=== PATIENT | male | born 1955 | race Hispanic/Latino ===

== ENCOUNTER 2019-01-26 15:56 | Emergency (ER) | payer MEDICARE, BC, MEDICAID ==
[2019-01-26 17:45] LABS: Bilirubin Negative (Negative); Blood, Urine Large (Negative); Clarity Cloudy (Clear); Glucose, Urine (Dipstick) Negative (Negative); Leukocyte Large (Negative); Nitrite Negative (Negative); Protein, Urine (Dipstick) 100 mg/dL (Neg-Trace); Urobilinogen 0.2 mg/dL (Less than 2)
[2019-01-26 17:50] LABS: RBC/HPF Greater than 50 HPF (0-3); Squamous Epithelial 0-3 HPF (0-3); WBC/HPF Greater Than 50 HPF (0-3)
[2019-01-26 17:51] LABS: Bacteria/HPF 2+ HPF (None Seen)
== END 2019-01-26 19:40 ==
LOC: MADERS 15:56
DX: T83.098A Other mechanical complication of other urinary catheter, initial encounter (principal); N39.0 Urinary tract infection, site not specified; N32.89 Other specified disorders of bladder; I10 Essential (primary) hypertension; E11.9 Type 2 diabetes mellitus without complications; E78.5 Hyperlipidemia, unspecified; E78.00 Pure hypercholesterolemia, unspecified; Z87.891 Personal history of nicotine dependence; Z79.899 Other long term (current) drug therapy; Z79.4 Long term (current) use of insulin
CPT/HCPCS: 51102; 81003; 81015; 87086

== ENCOUNTER 2019-03-18 15:01 | Outpatient (CLI) | payer MEDICARE, BC, MEDICAID | END 2019-03-18 15:02 | disposition home or self-care (01) | LOC: MADLABBHPM 15:01 | PROVIDERS: ATTEND Family Medicine | DX: R50.81 Fever presenting with conditions classified elsewhere (principal) | CPT/HCPCS: 87804 ==

== ENCOUNTER 2019-05-24 09:57 | Emergency (ER) | payer MEDICARE, BC, MEDICAID ==
[2019-05-24 10:55] LABS: Bilirubin Negative (Negative); Blood, Urine Small (Negative); Glucose, Urine (Dipstick) 100 mg/dL (Negative); Leukocyte Moderate (Negative); Nitrite Positive (Negative); Protein, Urine (Dipstick) 100 mg/dL (Neg-Trace); Urobilinogen 0.2 mg/dL (Less than 2)
[2019-05-24 11:02] LABS: Clarity Cloudy (Clear)
[2019-05-24 11:04] LABS: RBC/HPF 0-3 HPF (0-3); Squamous Epithelial 0-3 HPF (0-3); WBC/HPF Greater Than 50 HPF (0-3)
[2019-05-24 11:05] LABS: Bacteria/HPF 3+ HPF (None Seen); Mucous/LPF 1+ LPF (<2+)
[2019-05-24 11:06] LABS: Yeast-Budding Rare HPF (None Seen)
[2019-05-24 11:44] LABS: #Basophils 0.1 thou/uL (0.0-0.2); #Eosinphils 0.1 thou/uL (0.0-0.7); #Lymphocytes 1.4 thou/uL (1.20-3.40); #Monocytes 0.5 thou/uL (0.11-0.59); %Basophils 0.6 % (0.0-1.0); %Eosinophils 0.5 % (0.0-10.0); %Lymphocytes 14.2 % (21.0-51.0); %Monocytes 4.8 % (0.0-10.0); %Neutrophils 79.9 % (42.0-75.0); Hemoglobin 16.4 g/dL (14.0-18.0); Mean Corpuscular HGB CONC 31.3 g/dL (32.0-36.0); Mean Corpuscular Hemoglobin 27.3 pg (27.0-31.0); Mean Corpuscular Volume 87.4 fL (78.0-98.0); Mean Platelet Volume 7.8 fL (7.4-10.4); Platelet Count 326 thou/uL (130-400); RBC Distribution Width 12.2 % (11.5-14.5)
[2019-05-24 11:56] LABS: Base Excess-Venous 2.6 mmol/L (-2.0 to 3.0); Bicarbonate (HCO3v) 31.2 mmol/L (22.0-28.0); Calcium, Ionized 1.23 mmol/L (See Comments:); Chloride 106 mmol/L (98-107); Hemoglobin - Calc 18.5 g/dL (14.0-18.0); Potassium 4.2 mmol/L (3.5-5.1); Sodium 144 mmol/L (138-145); T. Carbon Dioxide 33.1 mmol/L (22.0-28.0); vO2 Saturation-calc 85.9 % (60.0-85.0)
[2019-05-24 11:59] LABS: ALT (SGPT) 33 U/L (8-55); AST (SGOT) 15 U/L (5-34); Albumin 4.2 g/dL (3.4-4.8); Alkaline Phosphatase 106 U/L (40-110); Anion Gap 15 mmol/L (10-20); BUN (Urea Nitrogen) 15 mg/dL (8.4-25.7); Bilirubin, Total 0.3 mg/dL (0.2-1.2); Calc. Creatinine Clearance 0 mL/min (70-130); Calcium 9.7 mg/dL (7.8-10.44); Carbon Dioxide 28 mmol/L (23-31); Chloride 104 mmol/L (98-107); Estimated GFR-MDRD 62; Globulin 3.3 g/dL (2.4-3.5); Glucose 172 mg/dL (80-115); Lipase 5 U/L (8-78); Potassium 4.3 mmol/L (3.5-5.1); Protein, Total 7.5 g/dL (5.8-8.1); Sodium 143 mmol/L (136-145)
--- NOTE | 2019-05-24 12:05 | CT ---
CT Abdomen Pelvis WO Con: 05/24/2019 11:06 AM HISTORY: Lower abdominal tenderness COMPARISON: 04/14/2019 TECHNIQUE: Multiple contiguous axial images were obtained and a CT of the abdomen and pelvis without IV contrast . Coronal and sagittal reformats were performed. FINDINGS: This examination is limited for the evaluation of solid organs and vascular structures due to the lac k of intravenous contrast. Lower Chest: within normal limits. Abdomen: Liver: within normal limits. Bile Ducts: Normal caliber. Gallbladder: Removed Pancreas: within normal limits. Spleen: within normal limits. Adrenals: within normal limits. Kidneys: within normal limits. Pelvis: Reproductive Organs: No pelvic masses. Ureters: within normal limits. Bladder: Decompressed by suprapubic catheter Bowel: Normal caliber. Normal appendix. Mesenteric Lymph Nodes: No enlarged mesenteric lymph nodes. Peritoneum: No ascites or free air, no fluid collection. Slight haziness of the small bowel mesentery may be normal for this patient. Vessels: Atherosclerotic calcifications in the aorta Retroperitoneum: within normal limits. Abdominal Wall: within normal limits. Bones: Degenerative changes in the spine. IMPRESSION: No evidence of acute intraabdominal or pelvic abnormality.
[2019-05-24] MEDS ORDERED: cefTRIAXone\\ROCEPHIN 2 GM VIAL ONE (12:26)
[2019-05-24] MEDS ORDERED: Sodium Chloride 0.9% 100 ML ONE (12:26)
[2019-05-24] MEDS ORDERED: Sodium Chloride 0.9% 1,000 ML ONE ×2 (12:26→13:47)
--- NOTE | 2019-05-24 12:46 | CT ---
EXAM: CT brain without contrast HISTORY: Dizziness COMPARISON: 01/11/2019 TECHNIQUE: Multiple contiguous axial images were obtained and a CT of the brain without contrast. FINDINGS: The brain is normal in morphology and attenuation without focal lesions or confluent areas of infarction. There is no evidence of hydrocephalus, intracranial hemorrhage, or extra-axial fluid collection. The calvarium and overlying soft tissues are unremarkable. The visualized paranasal sinuses and masto id air cells are well aerated. IMPRESSION: No evidence of acute intracranial abnormality
[2019-05-24] MEDS ORDERED: Aspirin Chewable 81 MG TAB ONE (13:22)
[2019-05-24] MEDS ORDERED: Promethazine HCl 25 MG/ML VIAL ONE (13:22)
== END 2019-05-24 14:16 | disposition short-term general hospital (02) ==
LOC: MADERS 09:57
DX: N30.90 Cystitis, unspecified without hematuria (principal); G35 Multiple sclerosis; E11.9 Type 2 diabetes mellitus without complications; R19.7 Diarrhea, unspecified; R10.814 Left lower quadrant abdominal tenderness; R10.813 Right lower quadrant abdominal tenderness; E78.5 Hyperlipidemia, unspecified; E78.00 Pure hypercholesterolemia, unspecified; I10 Essential (primary) hypertension; Z87.891 Personal history of nicotine dependence; Z79.899 Other long term (current) drug therapy; Z79.4 Long term (current) use of insulin; Z96.0 Presence of urogenital implants
CPT/HCPCS: 36415; 70450; 74176; 80053; 81003; 81015; 82330; 82803; 83605; 83690; 84484; 85025; 87077; 87086; 87186; 96365; 96367; J0696; J2550; J3490; J7050

== ENCOUNTER 2019-06-27 09:32 | Inpatient (IN) | payer MEDICARE, BC, OTHER ==
[2019-06-27] MEDS ORDERED: Sodium Chloride 0.9% 1,000 ML ONE (09:52)
[2019-06-27] MEDS ORDERED: Ketorolac Tromethamine 30 MG/ML VIAL ONE (10:26)
[2019-06-27] MEDS ORDERED: Phenazopyridine HCl 97.5 MG TABLET ONE (10:27)
[2019-06-27 10:37] LABS: #Basophils 0.1 thou/uL (0.0-0.2); #Eosinphils 0.1 thou/uL (0.0-0.7); #Monocytes 0.4 thou/uL (0.11-0.59); #Neutrophils 6.4 thou/uL (1.40-6.50); %Basophils 0.7 % (0.0-1.0); %Eosinophils 0.8 % (0.0-10.0); %Lymphocytes 12.3 % (21.0-51.0); %Monocytes 4.5 % (0.0-10.0); %Neutrophils 81.6 % (42.0-75.0); Hemoglobin 14.5 g/dL (14.0-18.0); Mean Corpuscular HGB CONC 31.8 g/dL (32.0-36.0); Mean Corpuscular Volume 88.2 fL (78.0-98.0); Mean Platelet Volume 7.4 fL (7.4-10.4); Platelet Count 243 thou/uL (130-400); RBC Distribution Width 12.1 % (11.5-14.5); Red Blood Cell (RBC) Count 5.18 mill/uL (4.70-6.10); White Blood Cell (WBC) Count 7.8 thou/uL (4.8-10.8)
[2019-06-27 10:40] LABS: Bilirubin Negative (Negative); Blood, Urine Large (Negative); Clarity Cloudy (Clear); Glucose, Urine (Dipstick) Negative (Negative); Leukocyte Moderate (Negative); Nitrite Negative (Negative); Protein, Urine (Dipstick) 100 mg/dL (Neg-Trace); Urobilinogen 0.2 mg/dL (Less than 2)
[2019-06-27 10:45] LABS: Bacteria/HPF 3+ HPF (None Seen); RBC/HPF Greater than 50 HPF (0-3); WBC/HPF Greater than 50 HPF (0-3)
[2019-06-27 10:52] LABS: ALT (SGPT) 22 U/L (8-55); AST (SGOT) 9 U/L (5-34); Alkaline Phosphatase 90 U/L (40-110); Anion Gap 13 mmol/L (10-20); BUN (Urea Nitrogen) 16 mg/dL (8.4-25.7); Bilirubin, Total 0.4 mg/dL (0.2-1.2); Calc. Creatinine Clearance 0 mL/min (70-130); Calcium 9.3 mg/dL (7.8-10.44); Carbon Dioxide 26 mmol/L (23-31); Chloride 106 mmol/L (98-107); Estimated GFR-MDRD 69; Globulin 2.9 g/dL (2.4-3.5); Glucose 187 mg/dL (80-115); Potassium 4.2 mmol/L (3.5-5.1); Protein, Total 6.9 g/dL (5.8-8.1); Sodium 141 mmol/L (136-145)
[2019-06-27] MEDS ORDERED: Morphine 4 MG/ML VIAL ONE ×2 (11:19→14:27)
--- NOTE | 2019-06-27 12:07 | CT ---
CT ABDOMEN AND PELVIS PERFORMED WITH CONTRAST ENHANCEMENT: HISTORY: Abdominal pain. COMPARISON: A 04/24/2019 study. FINDINGS: The lung bases are clear of infiltrates. The liver, spleen, and pancreas regions appear unremarkable. Gallbladder has been removed. Pneumobi casper is again demonstrated. Right and left adrenal glands and right and left kidneys are normal in size. There is some stranding to the more proximal mesenteric fat, a stable finding. CT OF PELVIS PERFORMED WITH CONTRAST: Suprapubic catheter is in place. The bladder is decompressed. There is bladder wall thickening. Ap pendix is normal. IMPRESSION: 1. Post cholecystectomy change with stable appearance to pneumobilia. 2. Suprapubic catheter in place. 3. Fat stranding within the mesenteric fat which is a stable finding and appears chronic. 4. No acute findings of the abdomen or pelvis. POS: TPC
[2019-06-27] MEDS ORDERED: Ciprofloxacin Lactate/D5W 400 mg/200 ml Premix ONE (12:37)
[2019-06-27] MEDS ORDERED: Ondansetron PF 4 MG/2 ML Vial SLOW IVP PRN (15:39)
[2019-06-27] MEDS ORDERED: Ondansetron ODT 4 MG TAB PO PRN (15:39)
[2019-06-27 15:56] VITALS: BMI 32.1
[2019-06-27] MEDS: Sodium Chloride 0.9% 1,000 ML IV SCH (16:47)
[2019-06-27] MEDS: Ibuprofen 600 MG TAB PO PRN (19:26)
[2019-06-27] MEDS ORDERED: Baclofen 10 MG TAB PO SCH (21:00)
[2019-06-27] MEDS ORDERED: Famotidine/PF 20 mg/2ml Vial SLOW IVP SCH (21:00)
[2019-06-27] MEDS ORDERED: metFORMIN 500 MG TAB PO SCH (22:30)
[2019-06-27] MEDS ORDERED: Famotidine In NaCl 20 mg/50 ml Premix Bag ONE (23:28)
[2019-06-28] MEDS: Sodium Chloride 0.9% 1,000 ML IV SCH ×2 (00:47→19:18)
[2019-06-28] MEDS: Morphine 4 MG/ML VIAL SLOW IVP PRN ×3 (06:04→17:16)
[2019-06-28] MEDS: Ibuprofen 600 MG TAB PO PRN ×2 (08:00→17:16)
[2019-06-28] MEDS ORDERED: Guaifenesin DM 100-10/5 ML UDCUP PO PRN (08:30)
[2019-06-28] MEDS ORDERED: Meclizine HCl 25 MG TAB PO PRN (08:30)
[2019-06-28] MEDS ORDERED: Baclofen 10 MG TAB PO SCH (09:00)
[2019-06-28] MEDS ORDERED: Enoxaparin Sodium 40 MG/0.4 ML SYRINGE SC SCH (09:00)
[2019-06-28] MEDS ORDERED: oxyCODONE ER 10 MG TAB PO SCH ×2 (09:00)
[2019-06-28] MEDS ORDERED: Famotidine In NaCl,Iso-Osm/PF 20 MG in Premix Bag 1 BAG IVPB SCH (09:00)
[2019-06-28] MEDS: Baclofen 10 MG TAB PO SCH ×3 (09:33→21:04)
[2019-06-28] MEDS: Amlodipine 5 MG TAB PO SCH (09:33)
[2019-06-28] MEDS: Magnesium Oxide 400 MG TAB PO SCH (09:34)
[2019-06-28] MEDS: Losartan 25 MG TAB PO SCH (09:35)
[2019-06-28] MEDS: Tamsulosin HCl 0.4 MG CAP PO SCH (09:35)
[2019-06-28] MEDS: Famotidine 20 MG TAB PO SCH (09:35)
[2019-06-28] MEDS: Polyethylene Glycol 3350 17 GM Packet PO SCH ×2 (09:36→21:04)
[2019-06-28] MEDS: Lantus 1000 UNITS/10 ML VIAL SC SCH (09:36)
[2019-06-28] MEDS ORDERED: Iopamidol 370 76% 100 ML VIAL ONE (12:49)
[2019-06-28] MEDS ORDERED: Trospium 20 MG TAB PO SCH (15:00)
[2019-06-28] MEDS: Trospium 20 MG TAB PO SCH ×2 (15:20→21:05)
[2019-06-28] MEDS: metFORMIN 500 MG TAB PO SCH (21:04)
--- NOTE | 2019-06-29 05:53 | HP ---
PRIMARY CARE PHYSICIAN: Dr. Siegel at [facility]. CHIEF COMPLAINT: Bladder spasms. HISTORY OF PRESENT ILLNESS: Mr. Horn is a 64-year-old male with a medical history of multiple recurrent urinary tract infections, diabetes type 2 , and multiple sclerosis. The patient presented to the ER from [facility] due to recurrent bladder spasms with excruciating pain radiating to his penis with a small amount of discharge from his penis into his diaper that he wears. The patient also does have a history of penile cancer. He states he saw his urologist, Dr. Massey, a day before on the and his suprapubic catheter was changed. He denies any fevers. He complains of left lower abdominal tenderness that is worsening the episodes for him. He states he had not had a bowel movement since 6 days, but then yesterday he had 2 very large loose bowel movements, but that is normal for him. He denies any trauma to the penile area. He denies any blood in his urine. He states the suprapubic catheter has been draining well and he had emptied it multiple times prior to presentation to the emergency room. The patient states he was in the hospital last month due to his flare-up of his multiple sclerosis. 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 Due to current COVID-19 restrictions in the assisted living facility, staff could not go forklift picker his medication and the patient could not return at the current moment. The patient was admitted. Upon evaluation, he continues to complain of severe spasms to his suprapubic bladder area radiating to his penis. He denies any fever. Denies any nausea or vomiting. PAST MEDICAL HISTORY: 1. Diabetes, type 2. 2. Multiple sclerosis. 3. Hypertension. 4. Recurrent multiple urinary tract infections. 5. BPH. 6. Penile cancer. PAST SURGICAL HISTORY: Suprapubic catheter, cholecystectomy. SOCIAL HISTORY: The patient lives in assisted living facility. He denies alcohol or illicit drug use. FAMILY HISTORY: Noncontributory. ALLERGIES: CODEINE, ADHESIVE, VANCOMYCIN, AND ACETAMINOPHEN. MEDICATIONS: 1. Baclofen 20 t.i.d. 2. Amlodipine 10 at bedtime. 3. Motrin 600 q.6 p.r.n. 4. Lantus 15 subcu daily. 5. Losartan 100 daily. 6. Mag-Ox 500 daily. 7. Meclizine 25 q.8 p.r.n. 8. Metformin 500 daily. 9. MiraLAX 17 g p.o. b.i.d. 10. Flomax 0.4 daily. 11. Oxybutynin XR 15 daily. REVIEW OF SYSTEMS: GENERAL: The patient denies fatigue, fever, chills. EYES: Denies eye pain, vision changes. ENT: Denies nasal congestion or rhinorrhea. RESPIRATORY: Denies cough, shortness of breath, or congestion. CARDIOVASCULAR: Denies chest pain, palpitation, edema. GASTROINTESTINAL: Reports constipation and then diarrhea. Reports abdominal pain. Denies nausea or vomiting. GENITOURINARY: Suprapubic tenderness and spasms. SKIN: Penile cancer. MUSCULOSKELETAL: Pain and tenderness to extremities. NEUROLOGIC: Weakness to both upper and lower extremities, worse in the right, can stand at baseline. Majority of the time, using the wheelchair. PSYCHOLOGIC: Denies anxiety or depression. PHYSICAL EXAMINATION: VITAL SIGNS: Temperature 96.5, pulse 95, blood pressure 124/66, respirations 18 , and O2 saturation 94% on room air. GENERAL: The patient is alert, awake, and oriented x3. He is lying in bed, in mild discomfort due to abdominal pain and spasms. HEENT: Normocephalic, atraumatic. PERRLA, EOMs intact. Gross normal vision. Gross normal hearing. NECK: Supple. Trachea midline. No JVD. CARDIOVASCULAR: Normal rate and rhythm. S1 and S2. No murmurs, gallops, or rubs. LUNGS: Clear to auscultation bilaterally. No wheezing, rales, or rhonchi. ABDOMEN: Soft. Positive bowel sounds. Tenderness to the left upper and lower abdomen. No guarding. Mild rebound. MUSCULOSKELETAL: Decreased tone to upper and lower extremities. Strength in the right upper extremity 3/5, left upper extremity 3/5, right and left lower extremities 2/5. NEUROLOGIC: Cranial nerves 2 through 12 grossly intact. SKIN: Capillary refill less than 3 seconds. PSYCHOLOGIC: Normal mood and affect. Good judgment and insight. LABORATORY AND DIAGNOSTIC DATA: UA; cloudy, large blood, 100 protein, moderate leukocytes, greater than 50 rbc's and wbc's, 3+ bacteria. Sodium 141, potassium 4.2, chloride 106, BUN 16, creatinine 1.08, glucose 187. Lactic acid 1.3. Calcium 9.3. WBC 7.8, hemoglobin 14.5, hematocrit 45.7, and platelets 243. ASSESSMENT: 1. Bladder spasm with neurogenic bladder. 2. Urinary tract infection, recurrent. 3. Multiple sclerosis. 4. Diabetes, type 2. 5. Hypertension. PLAN: The patient is a 64-year-old male with history of penile cancer , neurogenic bladder with suprapubic catheter, who has been admitted for bladder spasms and urinary tract infection. We will place the patient on Levaquin 750 daily, pending urine culture. We will place the patient on ibuprofen 600 q.4-6 p.r.n. We will continue morphine q.4 severe pain. We will continue oxybutynin for now and consider change if no improvement. We will continue the patient's home medications. We will plan for the patient to follow up with the urologist again as an outpatient. We will place the patient on Accu-Chek before meals and at bedtime. We will monitor electrolytes closely and assist the patient with his pain closely. Code status, the patient is a DNAR. Job ID: [id number] MTDD
[2019-06-29] MEDS ORDERED: metFORMIN 500 MG TAB PO SCH (08:00)
[2019-06-29] MEDS ORDERED: Tolterodine Tartrate LA 2 MG CAP PO SCH (09:00)
[2019-06-29] MEDS ORDERED: Oxybutynin ER 5 MG TAB PO SCH (09:00)
[2019-06-29] MEDS: Losartan 25 MG TAB PO SCH (09:19)
[2019-06-29] MEDS: Polyethylene Glycol 3350 17 GM Packet PO SCH (09:19)
[2019-06-29] MEDS: Famotidine 20 MG TAB PO SCH (09:20)
[2019-06-29] MEDS: Baclofen 10 MG TAB PO SCH ×3 (09:20→20:54)
[2019-06-29] MEDS: Magnesium Oxide 400 MG TAB PO SCH (09:20)
[2019-06-29] MEDS: Trospium 20 MG TAB PO SCH ×2 (09:20→20:53)
[2019-06-29] MEDS: Amlodipine 5 MG TAB PO SCH (09:21)
[2019-06-29] MEDS: Tamsulosin HCl 0.4 MG CAP PO SCH (09:21)
[2019-06-29] MEDS: Lantus 1000 UNITS/10 ML VIAL SC SCH (09:28)
[2019-06-29] MEDS ORDERED: Sodium Chloride 0.9% 1,000 ML BAG ONE (14:05)
[2019-06-29] MEDS: metFORMIN 500 MG TAB PO SCH (20:54)
[2019-06-30] MEDS ORDERED: Sodium Chloride 0.9% 30 ML ONE (08:36)
[2019-06-30] MEDS: Magnesium Oxide 400 MG TAB PO SCH (08:40)
[2019-06-30] MEDS: Famotidine 20 MG TAB PO SCH (08:40)
[2019-06-30] MEDS: Trospium 20 MG TAB PO SCH ×2 (08:41→20:21)
[2019-06-30] MEDS: Amlodipine 5 MG TAB PO SCH (08:41)
[2019-06-30] MEDS: Tamsulosin HCl 0.4 MG CAP PO SCH (08:42)
[2019-06-30] MEDS: Baclofen 10 MG TAB PO SCH ×3 (08:42→20:22)
[2019-06-30] MEDS: Losartan 25 MG TAB PO SCH (08:42)
[2019-06-30] MEDS: Lantus 1000 UNITS/10 ML VIAL SC SCH (08:44)
--- NOTE | 2019-06-30 09:29 | RAD ---
SINGLE VIEW ABDOMEN: HISTORY: Left-sided abdominal pain and tenderness. COMPARISON: 04/03/2018. FINDINGS: Nonspecific bowel gas pattern. No suspicious densities in the abdomen or pelvis. No pneumoperitoneum on this supine projection. No suspicious densities. Air-filled colon projects over the midline of the lower abdomen. IMPRESSION: Nonspecific bowel gas pattern. Consider CT if there is concern for possible acute abdominal pathology . Correlation made with CT from 06/27/2019 does not report any acute findings. Transcribed Date/Time: 06/30/2019 9:39 AM
[2019-06-30] MEDS: Polyethylene Glycol 3350 17 GM Packet PO SCH (10:19)
[2019-06-30] MEDS: Bisacodyl 5 MG TAB PO PRN (10:23)
[2019-06-30] MEDS: Nitrofurantoin Monohyd/M-Cryst 100 MG CAP PO SCH (20:21)
[2019-06-30] MEDS: metFORMIN 500 MG TAB PO SCH (20:22)
[2019-07-01] MEDS: Bisacodyl 5 MG TAB PO PRN (08:58)
[2019-07-01] MEDS: Nitrofurantoin Monohyd/M-Cryst 100 MG CAP PO SCH (08:58)
[2019-07-01] MEDS: Magnesium Oxide 400 MG TAB PO SCH (08:58)
[2019-07-01] MEDS: Trospium 20 MG TAB PO SCH (08:58)
[2019-07-01] MEDS: Amlodipine 5 MG TAB PO SCH (08:59)
[2019-07-01] MEDS: Famotidine 20 MG TAB PO SCH (08:59)
[2019-07-01] MEDS: Baclofen 10 MG TAB PO SCH ×2 (09:00→14:47)
[2019-07-01] MEDS: Tamsulosin HCl 0.4 MG CAP PO SCH (09:01)
[2019-07-01] MEDS: Losartan 25 MG TAB PO SCH (09:05)
[2019-07-01] MEDS: Polyethylene Glycol 3350 17 GM Packet PO SCH (09:06)
[2019-07-01] MEDS: Lantus 1000 UNITS/10 ML VIAL SC SCH (09:07)
[2019-07-01 11:11] VITALS: BP 115/85; TEMP 98.2
[2019-07-01] MEDS ORDERED: Fleet Enema 133 ML BOT PR SCH (14:15)
[2019-07-01] MEDS ORDERED: Cipro 250 MG TAB PO SCH (20:00)
[2019-07-02] MEDS ORDERED: Fleet Enema 133 ML BOT FS PRN (09:00)
--- NOTE | 2019-07-03 22:28 | PQF ---
Justina Boubacar Stevens ALYX QUEZADA [id number] CLINICAL DOCUMENTATION CLARIFICATION FORM: POST DISCHARGE Addendum to original discharge summary date: ____ Late entry note date: __ DATE:07/03/2019 ATTN: ALYX QUEZADA Please exercise your independent, professional judgment in responding to the clarification form. Clinical indicators are provided on the bottom of this form for your review Please check appropriate box(s): [x ] UTI due to suprapubic catheter [ ] UTI not due to suprapubic catheter [ ] Other diagnosis [ ] Unable to determine In addition, please specify: Present on Admission (POA): [ x ] Yes [ ] No [ ] Unable to determine For continuity of documentation, please document condition throughout progress notes and discharge summary. Thank You. CLINICAL INDICATORS - SIGNS / SYMPTOMS / LABS He states he saw his urologist Dr Massey a day before on the and his suprapubic catheter was changed -Documented in H&P on 06/27 by Alyx Quezada MD The patient is a 64 year-old male with history of penile cancer , neurogenic bladder with suprapubic catheter.Who has been admitted for bladder spasms and urinary tract infection-Documented in H&P on 06/27 by Alyx Quezada MD RISK FACTORS The patient is a 64 year-old male with history of penile cancer , neurogenic bladder with suprapubic catheter.Who has been admitted for bladder spasms and urinary tract infection-Documented in H&P on 06/27 by Alyx Quezada MD TREATMENT: We will place the patient on Levaquin 750 daily -Documented in H&P on 06/27 by Alyx Quezada MD Levaquin 750 mg IV-Documented in medication snapshot [employer] Winform Viewer (This form is maintained as a part of the permanent medical record) 2014 [employer] All Rights Reserved [email or web address] [phone] MTDD
== END 2019-07-01 14:47 | disposition swing bed (61) | DRG 699 ==
LOC: MADERS 09:32 → MADMS 13:55 → OBSVTOIN 06-28 11:26
PROVIDERS: ADMIT Family Medicine; ATTEND Family Medicine
DX: N32.89 Other specified disorders of bladder (principal); T83.518A Infection and inflammatory reaction due to other urinary catheter, initial encounter; I10 Essential (primary) hypertension; E11.9 Type 2 diabetes mellitus without complications; G35 Multiple sclerosis; N31.2 Flaccid neuropathic bladder, not elsewhere classified; N40.0 Benign prostatic hyperplasia without lower urinary tract symptoms; Y84.6 Urinary catheterization as the cause of abnormal reaction of the patient, or of later complication, without mention of misadventure at the time of the procedure
CPT/HCPCS: 36415; 36416; 74018; 74177; 80053; 81003; 81015; 83605; 85025; 87040; 87077; 87086; 87186; 96361; 96365; 96375; 96376; J0744; J1885; J1956; J2270; J2405; J7050; Q9967

== ENCOUNTER 2019-07-29 07:07 | Emergency (ER) | payer MEDICARE, BC, OTHER ==
[2019-07-29] MEDS ORDERED: Mineral Oil ENEMA ONE ×2 (07:51→07:55)
[2019-07-29 08:21] LABS: #Basophils 0.1 thou/uL (0.0-0.2); #Eosinphils 0.1 thou/uL (0.0-0.7); #Lymphocytes 0.7 thou/uL (1.20-3.40); #Monocytes 0.3 thou/uL (0.11-0.59); %Basophils 0.5 % (0.0-1.0); %Eosinophils 0.6 % (0.0-10.0); %Lymphocytes 7.2 % (21.0-51.0); %Monocytes 2.9 % (0.0-10.0); %Neutrophils 88.7 % (42.0-75.0); Hemoglobin 14.4 g/dL (14.0-18.0); Mean Corpuscular HGB CONC 31.8 g/dL (32.0-36.0); Mean Corpuscular Hemoglobin 28.1 pg (27.0-31.0); Mean Corpuscular Volume 88.2 fL (78.0-98.0); Platelet Count 264 thou/uL (130-400); Red Blood Cell (RBC) Count 5.11 mill/uL (4.70-6.10); White Blood Cell (WBC) Count 10.1 thou/uL (4.8-10.8)
[2019-07-29 08:38] LABS: ALT (SGPT) 16 U/L (8-55); AST (SGOT) 9 U/L (5-34); Alkaline Phosphatase 83 U/L (40-110); Anion Gap 12 mmol/L (10-20); BUN (Urea Nitrogen) 14 mg/dL (8.4-25.7); Bilirubin, Total 0.4 mg/dL (0.2-1.2); Calc. Creatinine Clearance 0 mL/min (70-130); Calcium 9.4 mg/dL (7.8-10.44); Carbon Dioxide 30 mmol/L (23-31); Chloride 107 mmol/L (98-107); Estimated GFR-MDRD 78; Globulin 3.1 g/dL (2.4-3.5); Glucose 135 mg/dL (80-115); Potassium 3.9 mmol/L (3.5-5.1); Protein, Total 7.1 g/dL (5.8-8.1); Sodium 145 mmol/L (136-145)
[2019-07-29 09:02] LABS: Lipase Less than 4 U/L (8-78)
--- NOTE | 2019-07-29 09:45 | CT ---
CT ABDOMEN AND PELVIS WITHOUT CONTRAST: Date: 07/29/2019 PROVIDED CLINICAL HISTORY: Abdominal pain. FINDINGS: Comparison is made with the study dated 06/27/2019 and 05/24/2019. The visualized lung bases are free of significant opacity. The solid abdominal organs and suboptimally evaluated in the absence of IV contrast material, but dem onstrate an unremarkable unenhanced CT appearance. There is persistent, nonspecific increased attenuation within the central small bowel mesenteric fat, which can be seen in the setting of mesenteric panniculitis. There is no bowel dilatation, additiona l fat stranding, free fluid, or free air apparent. There is conspicuous rectal fecal retention. There is minimal noncircumscribed fluid density within the presacral fat. The appendix appears normal. Cho lecystectomy changes are seen. Small, fat-containing right inguinal hernia. Suprapubic catheter is again noted. Scattered vascular c alcifications are seen. The osseous structures demonstrate no concerning lytic or blastic lesions. IMPRESSION: 1. Increased attenuation within the central small bowel mesenteric fat can be seen in the setting of mesenteric panniculitis, but is nonspecific. 2. Conspicuous rectal fecal retention. POS: DEVONTE
== END 2019-07-29 10:38 ==
LOC: MADERS 07:07
DX: K65.4 Sclerosing mesenteritis (principal); K59.00 Constipation, unspecified; E11.9 Type 2 diabetes mellitus without complications; E78.5 Hyperlipidemia, unspecified; E78.00 Pure hypercholesterolemia, unspecified; I10 Essential (primary) hypertension; G35 Multiple sclerosis; Z87.891 Personal history of nicotine dependence; Z79.84 Long term (current) use of oral hypoglycemic drugs; Z79.899 Other long term (current) drug therapy
CPT/HCPCS: 74176; 80053; 83605; 83690; 85025